=== PATIENT | female | born 1940 | race Caucasian/White ===

== ENCOUNTER 2022-07-23 17:48 | Emergency (ER) | payer MEDICARE ==
[2022-07-23] MEDS ORDERED: HYDROmorphone 1 MG/ML Syringe IVPUSH ONE (18:01)
[2022-07-23] MEDS ORDERED: Heparin Sodium 5,000 Units/ML Vial IVPUSH ONE (18:23)
[2022-07-23] MEDS ORDERED: Heparin Sodium/D5W 25,000 UNITS/500 ML BAG IV SCH (18:30)
[2022-07-23] MEDS ORDERED: Heparin Sodium/D5W 500 ML ONE (18:32)
== END 2022-07-23 18:35 ==
LOC: JP.ED 17:48
DX: I74.2 Embolism and thrombosis of arteries of the upper extremities (principal); Z88.0 Allergy status to penicillin; Z88.2 Allergy status to sulfonamides
CPT/HCPCS: 96374; 96375; 99284; 99285; J1170; J1644